=== PATIENT | female | born 1955 | race Caucasian/White ===

== ENCOUNTER 2016-12-25 16:19 | Emergency (ER) | payer SELFPAY ==
--- NOTE | ~2016-12-25 | CR173 ---
[facility] A Service of [facility] & [facility] RADIOLOGY TEXT RESULTS PATIENT: BRE DAVIS LOCATION: [facility] : 57 UNIT #: [id number] AGE: [address]: Loreta Tolentino MD SEX: F ORDER DR: [id number] [facility] [address] [place], [place] [address] [id number] E MR#: [id number] Acc #: [id number] NAME: BRE DAVIS : 1955 SEX: F STUDY DATE/TIME: 12/25/2016 17:07 UNIT: [facility] ROOM: STUDY DESCRIPTION: CR Knee 3 Views Rt Attending Physician: Loreta Tolentino M.D. Ordering Physician: Loreta Tolentino M.D. Primary Care Physician: Primary Care Physician No MEDICAL IMAGING REPORT This report is preliminary unless electronic signature is present EXAM Right knee 12/25/2016 INDICATION 61-year-old female with a history of trauma, pain and bruising after a fall yesterday to both knees. Swelling of both knees. TECHNIQUE 3 views of the right knee were performed. Correlation is made with imaging of the left knee same date. FINDINGS The bones are osteopenic. There is no acute fracture. No joint effusion. Mild degenerative change in the patellofemoral compartment. Atherosclerotic calcifications are noted. IMPRESSION Osteopenia and degenerative change to a mild degree. No acute fracture or joint effusion. Dictated by... Kolton Cuevas M.D. THIS IS AN ELECTRONICALLY VERIFIED REPORT Kolton Cuevas M.D. at 12/28/2016 7:43 AM DAVID/denise TD: 12/26/2016 08:18 JOB #: [id number] MEDICAL IMAGING REPORT COPY
--- NOTE | ~2016-12-25 | CR63 ---
[facility] A Service of [facility] RADIOLOGY TEXT RESULTS PATIENT: BRE DAVIS LOCATION: [facility] : 57 UNIT #: [id number] AGE: [address]: Loreta Tolentino MD SEX: F ORDER DR: [id number] [facility] [address] [place], [place] [address] [id number] E MR#: [id number] Acc #: [id number] NAME: BRE DAVIS : 1955 SEX: F STUDY DATE/TIME: 12/25/2016 16:57 UNIT: [facility] ROOM: STUDY DESCRIPTION: CR Chest 2 View Attending Physician: Loreta Tolentino M.D. Ordering Physician: Loreta Tolentino M.D. Primary Care Physician: Primary Care Physician No MEDICAL IMAGING REPORT This report is preliminary unless electronic signature is present EXAM Chest 2 views INDICATION Cough and chest congestion since yesterday. PROCEDURE Frontal and lateral views of the chest. COMPARISON None. FINDINGS Mild cardiomegaly. Diffuse interstitial coarsening. Small bilateral pleural effusions. Ill-defined opacity at the left lung base. IMPRESSION 1. Small bilateral pleural effusions. 2. Ill-defined opacity left lung base may represent atelectasis or subtle infiltrate. 3. Diffuse interstitial coarsening could represent mild edema or underlying chronic change. Dictated by... Wilner Galdamez M.D. THIS IS AN ELECTRONICALLY VERIFIED REPORT Wilner Galdamez M.D. at 12/28/2016 7:21 AM EEDinh/denise TD: 12/26/2016 07:48 JOB #: [id number] [facility] A Service [facility] RADIOLOGY TEXT RESULTS PATIENT: BRE DAVIS LOCATION: [facility] : 57 UNIT #: [id number] AGE: [address]: Loreta Tolentino MD SEX: F ORDER DR: MEDICAL IMAGING REPORT COPY
--- NOTE | ~2016-12-25 | CT101 ---
[facility] A Service of [facility] RADIOLOGY TEXT RESULTS PATIENT: BRE DAVIS LOCATION: [facility] : 57 UNIT #: [id number] AGE: [address]: Loreta Tolentino MD SEX: F ORDER DR: [id number] [place] [id number] [facility] [place], [place] [address] [id number] E MR#: [id number] Acc #: [id number] NAME: BRE DAVIS : 1955 SEX: F STUDY DATE/TIME: 12/25/2016 16:49 UNIT: [facility] ROOM: STUDY DESCRIPTION: CT Maxillofacial Area Wo Cont Attending Physician: Loreta Tolentino M.D. Ordering Physician: Loreta Tolentino M.D. Primary Care Physician: Primary Care Physician No MEDICAL IMAGING REPORT This report is preliminary unless electronic signature is present EXAM CT facial bones without contrast INDICATION Right eye bruising and right forehead pain and bruising after a fall yesterday. PROCEDURE Unenhanced CT of the facial bones. COMPARISON None. TECHNIQUE This CT examination was performed with one or more of the following radiation dose reduction techniques: automatic exposure control, adjustment of mA and/or kV according to patient size, and iterative reconstruction. FINDINGS No acute facial bone fracture. The paranasal sinuses and mastoid air cells are clear. Globes are intact. Lenses are located. There is mild right periorbital soft tissue swelling. IMPRESSION Mild right periorbital soft tissue swelling. Globes are intact. Lenses are located. There is no acute facial bone fracture. Dictated by... Wilner Galdamez M.D. THIS IS AN ELECTRONICALLY VERIFIED REPORT [facility] A Service [facility] RADIOLOGY TEXT RESULTS PATIENT: BRE DAVIS LOCATION: [facility] : 57 UNIT #: [id number] AGE: [address]: Loreta Tolentino MD SEX: F ORDER DR: Wilner Galdamez M.D. at 12/28/2016 7:21 AM AUDREY/denise TD: 12/26/2016 07:23 JOB #: [id number] MEDICAL IMAGING REPORT COPY
--- NOTE | ~2016-12-25 | EKG ---
PATIENT: BRE DAVIS UNIT #: [id number] Ventricular Rate: 87 BPM Atrial Rate: 87 BPM P-R Interval: 132 ms QRS Duration: 138 ms Q-T Interval: 414 ms QTC Calculation(Bezet): 498 ms P [place]: 51 degrees Calculated R [place]: 118 degrees Calculated T [place]: -31 degrees Diagnosis Line: Sinus rhythm with occasional Premature ventricular Diagnosis Line: complexes Diagnosis Line: Non-specific intra-ventricular conduction block Diagnosis Line: with repolarization abnormality Diagnosis Line: Cannot rule out Septal infarct (cited on or before Diagnosis Line: 09-NOV-2013) Diagnosis Line: Lateral infarct (cited on or before 09-NOV-2013) Diagnosis Line: T wave abnormality, consider inferior ischemia Diagnosis Line: Abnormal ECG Diagnosis Line: When compared with ECG of 09-NOV-2013 22:10, Diagnosis Line: Significant changes have occurred Diagnosis Line: Confirmed by ALEX WORKMAN MD ([id number]) on 12/28/2016 Diagnosis Line: 7:24:29 AM INTERPRETING MD: JACINTA LOPEZ
--- NOTE | ~2016-12-25 | CT71 ---
[facility] A Service of [facility] RADIOLOGY TEXT RESULTS PATIENT: BRE DAVIS LOCATION: [facility] : 57 UNIT #: [id number] AGE: [address]: Loreta Tolentino MD SEX: F ORDER DR: [id number] [facility] [address] [place], [place] [address] [id number] E MR#: [id number] Acc #: [id number] NAME: BRE DAVIS : 1955 SEX: F STUDY DATE/TIME: 12/25/2016 16:49 UNIT: [facility] ROOM: STUDY DESCRIPTION: CT Head Wo Contrast Attending Physician: Loreta Tolentino M.D. Ordering Physician: Loreta Tolentino M.D. Primary Care Physician: No Primary Care Physician MEDICAL IMAGING REPORT This report is preliminary unless electronic signature is present EXAM CT brain without contrast media. HISTORY Fell yesterday, bruising right-side of forehead headache. TECHNIQUE Transaxial imaging of the brain was performed without contrast media. Bone and soft tissue windows are reviewed. This CT exam was performed with one or more of the following radiation dose reduction techniques: automatic control, adjustment of mA and/or kV according to patient size, and iterative reconstruction. FINDINGS Ventricular size and configuration is normal. No intra or extraaxial mass lesions, fluid collections or mass effect are seen. No focal areas of low attenuation or evidence of acute intracranial hemorrhage. Bone windows are reviewed and are unremarkable. CONCLUSION Normal noncontrast CT of the brain Dictated by... Tommy Rowley M.D. THIS IS AN ELECTRONICALLY VERIFIED REPORT Tommy Rowley M.D. at 12/28/2016 5:09 PM DRISS/trey TD: 12/26/2016 05:32 JOB #: [id number] MEDICAL IMAGING REPORT [facility] A Service of [facility] RADIOLOGY TEXT RESULTS PATIENT: BRE DAVIS LOCATION: [facility] : 57 UNIT #: [id number] AGE: [address]: Loreta Tolentino MD SEX: F ORDER DR: Page 1 of 1 COPY
--- NOTE | ~2016-12-25 | CT16 ---
[facility] A Service of [facility] RADIOLOGY TEXT RESULTS PATIENT: BRE DAVIS LOCATION: [facility] : 57 UNIT #: [id number] AGE: [address]: Loreta Tolentino MD SEX: F ORDER DR: [id number] [facility] [address] [place], [place] [address] [id number] E MR#: [id number] Acc #: [id number] NAME: BRE DAVIS : 1955 SEX: F STUDY DATE/TIME: 12/25/2016 19:03 UNIT: [facility] ROOM: STUDY DESCRIPTION: CT Angio Chest for PE Attending Physician: Loreta Tolentino M.D. Ordering Physician: Loreta Tolentino M.D. Primary Care Physician: Primary Care Physician No MEDICAL IMAGING REPORT This report is preliminary unless electronic signature is present EXAM CTA chest PE protocol INDICATION Shortness of air and abnormal chest x-ray today. PROCEDURE Contrast-enhanced CTA of the chest attention on opacification of the pulmonary arteries. Coronal 3-D MIP and sagittal reformatted images reconstructed and submitted. 80 mL of Isovue-370. COMPARISON 2 view chest performed earlier on the same day. TECHNIQUE This CT examination was performed with one or more of the following radiation dose reduction techniques: automatic exposure control, adjustment of mA and/or kV according to patient size, and iterative reconstruction. FINDINGS No evidence for pulmonary embolus or acute aortic injury. There are small to moderate bilateral pleural effusions. There is minimal opacity in both lung bases, most in keeping with atelectasis. No pneumothorax. There is diffuse interlobular septal thickening. No acute findings in the included upper abdomen. No aggressive appearing bone lesion. IMPRESSION 1. No evidence for pulmonary embolus. 2. Small to moderate bilateral pleural effusions. Opacity in both lung bases most in keeping with atelectasis. No dense consolidation. 3. Interlobular septal thickening is a nonspecific finding but is favored to reflect interstitial edema. [facility] A Service of [facility] RADIOLOGY TEXT RESULTS PATIENT: BRE DAVIS [id number] 57 UNIT #: [id number] AGE: [address]: Loreta Tolentino MD SEX: F ORDER DR: Dictated by... Wilner Galdamez M.D. THIS IS AN ELECTRONICALLY VERIFIED REPORT Wilner Galdamez M.D. at 12/28/2016 7:22 AM AUDREY/denise TD: 12/26/2016 13:56 JOB #: [id number] MEDICAL IMAGING REPORT COPY
--- NOTE | ~2016-12-25 | CR172 ---
[facility] A Service of [facility] & [facility] RADIOLOGY TEXT RESULTS PATIENT: BRE DAVIS LOCATION: [facility] : 57 UNIT #: [id number] AGE: [address]: Loreta Tolentino MD SEX: F ORDER DR: [id number] [facility] [address] [place], [place] [address] [id number] E MR#: [id number] Acc #: [id number] NAME: BRE DAVIS : 1955 SEX: F STUDY DATE/TIME: 12/25/2016 17:09 UNIT: [facility] ROOM: STUDY DESCRIPTION: CR Knee 3 Views Lt Attending Physician: Loreta Tolentino M.D. Ordering Physician: Loreta Tolentino M.D. Primary Care Physician: Primary Care Physician No MEDICAL IMAGING REPORT This report is preliminary unless electronic signature is present EXAM Left knee series INDICATION Left knee pain after a fall yesterday. PROCEDURE 3 views left knee. COMPARISON None. FINDINGS No acute fracture. No dislocation. Tricompartmental arthrosis. IMPRESSION Tricompartmental arthrosis. No acute findings. Dictated by... Wilner Galdamez M.D. THIS IS AN ELECTRONICALLY VERIFIED REPORT Wilner Galdamez M.D. at 12/28/2016 7:21 AM AUDREY/denise TD: 12/26/2016 08:11 JOB #: [id number] MEDICAL IMAGING REPORT COPY
[~2016-12-25 16:19] MED LIST: ACETAMINOPHEN PO; AQUAPHOR HEALIN50 GM TP; BACTRIM DS TABL1 TA1 PO; BACTROBAN22 GM TP; CIPRO PO; CLINDAMYCIN 300 MG PO; CLOBEVATE45 GM TOP; DAKIN'S MODIF1000 ML EXT; DIFLUCAN PO; GLUCOPHAGE500 MG PO; HYDROCHLOROTHIA25 MG PO; IBUPROFEN 600MG PO; KEFLEX500 M1 PO; LISINOPRIL10 MG PO; LO-DOSE ASPIRIN81 M1 PO; LOTRIMIN 1% CR30 GM EXT; MICRONASE5 M2 PO; MOTRIN600 M1 PO; NO MEDICATIONS; NORCO 10-325 TA1 TAB PO; NOVOLIN 70/30 V10 M1 SUBQ; PERCOCET 5-3251 TAB PO; SPECTAZOLE15 GM TP; TRAMADOL HCL50 M1 PO; VIBRAMYCIN100 M1 PO; ZYVOX PO
[2016-12-25 18:22] LABS: BASOPHIL% 0.6 % (0-2.5); EOSINOPHIL# 0.1 X10e3 (0-0.7); EOSINOPHIL% 0.9 % (0.0-7.0); HEMATOCRIT 40.5 % (35.0-45.0); LYMPHOCYTE# 1.9 X10e3 (1.0-3.5); LYMPHOCYTE% 23.8 % (17.0-45.0); MEAN CELL VOLUME 83.3 FL (83-96); MEAN CORPUSCULAR HEMOGLOBIN 26.8 PG (28-34); MEAN CORPUSCULAR HGB CONC 32.1 g/dL (30-36); MEAN PLATELET VOLUME 9.4 FL (6.5-11.5); MONOCYTE# 0.7 X10e3 (0-1.0); NEUTROPHIL# 5.2 X10e3 (1.5-7.1); NEUTROPHIL% 65.7 % (40-75); PLATELET COUNT 221 X10e3 (140-420); RED BLOOD COUNT 4.86 X10e (3.90-5.30); RED CELL DISTRIBUTION WIDTH 14.5 % (11.0-15.5); WHITE BLOOD COUNT 7.9 X10e3 (4.0-10.5)
[2016-12-25 18:35] LABS: DIFF IND NO
[2016-12-25 18:46] LABS: ALBUMIN SERUM 3.2 g/dL (3.5-5.0); ALKALINE PHOSPHATASE 73 U/L (32-92); ALT (SGPT) 18 U/L (10-40); AST (SGOT) 15 U/L (10-42); BILIRUBIN, DIRECT 0.1 mg/dL (0.0-0.2); BILIRUBIN,INDIRECT 0.7 mg/dL (0.0-0.9); BILIRUBIN,TOTAL 0.8 mg/dL (0.2-2.0); BLOOD UREA NITROGEN 20 mg/dL (9-23); CALCIUM SERUM 8.5 mg/dL (8.4-10.2); CARBON DIOXIDE 26 mmol/L (22-31); CHLORIDE 104 mmol/L (100-111); CREATININE SERUM 0.8 mg/dL (0.6-1.4); GLOM FILT RATE Estimated ABOVE60 mL/min (>60); GLUCOSE FASTING 235 mg/dL (70-110); POTASSIUM 4.6 mmol/L (3.5-5.1); PROTEIN TOTAL SERUM 6.6 g/dL (6.0-8.3); SODIUM 134 mmol/L (135-145)
[2016-12-25 19:00] LABS: POC - CKMB 1.9 ng/mL (0.0-7.9); POC - TROPONIN <0.05 ng/mL (<=0.05)
== END 2016-12-25 21:55 | disposition home or self-care (01) ==
LOC: CED 16:19
PROVIDERS: Emergency Medicine
DX: S00.83XA Contusion of other part of head, initial encounter (principal); E11.9 Type 2 diabetes mellitus without complications; I10 Essential (primary) hypertension; M25.561 Pain in right knee; M25.562 Pain in left knee; Z87.891 Personal history of nicotine dependence; Z86.79 Personal history of other diseases of the circulatory system; W01.0XXA Fall on same level from slipping, tripping and stumbling without subsequent striking against object, initial encounter; Y92.511 Restaurant or cafe as the place of occurrence of the external cause
CPT/HCPCS: 36415; 70450; 70486; 71020; 71275; 73562; 80048; 80076; 82553; 82947; 83880; 84484; 85025; 93005; 96372; 99284; J1885; Q9967

== ENCOUNTER → 2017-03-17 | Outpatient (CLI) | payer OTHER | END | disposition home or self-care (01) | LOC: CECH 13:18 | DX: I50.9 Heart failure, unspecified (principal); I34.0 Nonrheumatic mitral (valve) insufficiency; I36.1 Nonrheumatic tricuspid (valve) insufficiency | CPT/HCPCS: 93306 ==